=== PATIENT | male | born 1985 ===

== ENCOUNTER 2017-04-26 13:35 | Emergency (ER) | payer SELFPAY ==
--- NOTE | 2017-04-26 15:05 | UC ---
Laceration HPI - HPI Summary HPI Summary: Pt presents with laceration to forehead. He tells me that he was at work and bent down to pick something up from the floor when he hit his forehead against the corner of a toolbox - sustained a laceration to the area. He believes his last tetanus was within the last 5 years. No LOC. No headache or dizziness. - History Of Current Complaint Chief Complaint: UCLaceration Stated Complaint: LAC ABOVE EYE BROW Time Seen by Provider: 04/26/17 14:58 Hx Obtained From: Patient Laceration Location: Face Mechanism Of Injury: Sharp Trauma Onset/Duration: Sudden Onset Severity: Mild Pain Intensity: 3 Pain Scale Used: 0-10 Numeric - Allergies/Home Medications Allergies/Adverse Reactions: Allergies Allergy/AdvReac Type Severity Reaction Status Date / Time No Known Allergies Allergy Verified 04/26/17 13:49 Home Medications: Home Medications Multivitamin [Multivitamins] 1 cap PO DAILY 04/26/17 [History Confirmed 04/26/17 ] PMH/Surg Hx/FS Hx/Imm Hx Previously Healthy: Yes - Surgical History Surgical History: None - Family History Known Family History: Positive: None - Social History Occupation: Employed Full-time Lives: With Family Alcohol Use: Occasionally Substance Use Type: None Smoking Status (MU): Never Smoked Tobacco - Immunization History Most Recent Tetanus Shot: 2017 Review of Systems Constitutional: Negative Skin: Other - laceration to forehead Eyes: Negative Respiratory: Negative Cardiovascular: Negative Neurological: Negative Psychological: Negative All Other Systems Reviewed And Are Negative: Yes Physical Exam Triage Information Reviewed: Yes Appearance: Well-Appearing, No Pain Distress, Well-Nourished Vital Signs: Initial Vital Signs Temp 98.1 F 04/26/17 13:43 Pulse 79 04/26/17 13:43 Resp 16 04/26/17 13:43 BP 116/75 04/26/17 13:43 Pulse Ox 100 04/26/17 13:43 Vital Signs Reviewed: Yes Eyes: Positive: Other: - EOMI. PERRLA Neck: Positive: Supple, Other: - FROM. NTTP. Respiratory: Positive: Lungs clear, Normal breath sounds, No respiratory distress Cardiovascular: Positive: RRR, No Murmur, Pulses Normal Neurological: Positive: Alert, Other: - CN II - XII grossly intact. Psychological: Positive: Age Appropriate Behavior Skin: Positive: Other - 2.0cm linear laceration above left eyebrow. No FB. Bleeding stopped with direct pressure Laceration Repair - Laceration Repair 1 Description: Linear Laceration Size After Repair: Length (cm) - 2.0 Modified For Repair: No Type Injection: Local Anesthesia Used: 2.0% Lido Cleansing Completed Via Routine Prep: Yes Closure Material: Sutures - FOUR 6-0 Closure Method: Single Layer Suture Of: Skin Suture Type: Nylon Laceration Course/Dx - Course/Dx Course Of Treatment: A time out was performed, witnessed, and signed. The area was irrigated with 50mL sterile saline. 2mL of 2% lidocaine without epi was administered and good anesthetization was achieved. In the usual sterile fashion , FOUR 6-0 nylon sutures were placed. The wound was bandaged with a band-aid. Pt tolerated procedure well. - Differential Dx - Laceration/Wound Provider Diagnoses: 2.0cm laceration to left forehead Discharge - Discharge Plan Condition: Stable Disposition: HOME Patient Education Materials: Care For Your Stitches (DC), Laceration (DC) Referrals: No Primary Care Phys,NOPCP [Primary Care Provider] - Additional Instructions: If you develop a fever, shortness of breath, chest pain, new or worsening symptoms - please call your PCP or go to the ED. 1) Please keep the area bandaged, clean, dry, and intact for the next 24 hours. 2) If you develop a fever, colored or thick discharge, increased pain or swelling - please call your PCP or go to the ED. 3) Please return in 3-5 days to have your FOUR sutures removed.
[2017-04-26] MEDS ORDERED: Lidocaine 2% PF * 5 ML VIAL INJ ONE (15:20)
[2017-04-26 16:06] VITALS: BP 132/76
== END 2017-04-26 16:00 | disposition home or self-care (01) ==
LOC: UCEAST 13:35
DX: S01.81XA Laceration without foreign body of other part of head, initial encounter (principal); W22.8XXA Striking against or struck by other objects, initial encounter; Y93.89 Activity, other specified; Y92.9 Unspecified place or not applicable; Y99.0 Civilian activity done for income or pay
CPT/HCPCS: 12011; 99202; G0463